=== PATIENT | male | born 1965 | race Caucasian/White ===

== ENCOUNTER 2022-01-06 22:27 | Observation (INO) | payer SELFPAY ==
[~2022-01-06] VITALS: Ht 177.8 cm; Wt 61.0 kg
--- NOTE | 2022-01-06 22:27 | NUR ---
TRIAGED AT BEDSIDE.
[2022-01-06 22:37] VITALS: BP 193/98
[2022-01-06 22:56] LABS: HEMATOCRIT 41.6 % (39.0-50.0); HEMOGLOBIN 13.9 g/dl (14.0-18.0); IMMATURE GRANULOCYTES 0.2 % (0.0-5.0); MEAN CELL VOLUME 98.3 fL CALC (80.0-100.0); MEAN CORPUSCULAR HGB 32.9 pG CALC (26.0-32.0); MEAN CORPUSCULAR HGB CONC 33.4 g/dL CAL (32.0-36.0); NEUT# 5.79 thou/uL (1.82-7.42); RED BLOOD COUNT 4.23 mill/uL (4.70-6.10)
[2022-01-06 23:00] VITALS: BP 173/92
[2022-01-06 23:10] LABS: ALBUMIN 4.9 g/dL (3.2-5.0); ALKALINE PHOSPHATASE 54 u/l (38-126); AMYLASE 112 u/l (30-110); ANION GAP 15 (6-22 (CALC)); BILIRUBIN, TOTAL 0.6 mg/dL (0.0-1.4); BUN 33 mg/dL (9-20); BUN/CREATININE RATIO 15 (12-20 (CALC)); CARBON DIOXIDE 22 mmol/l (22-30); CHLORIDE 108 mmol/l (95-108); CREATININE 2.2 mg/dL (0.7-1.3); GFR FOR AFR.AMER. 38 ML/MIN (>=60 (CALC)); GFR OTHER RACES 31 ML/MIN (>=60 (CALC)); LIPASE 379 u/l (23-300); SGOT/AST 37 u/l (17-59); SODIUM 140 mmol/l (137-146); TOTAL PROTEIN 8.8 g/dL (6.3-8.2)
[2022-01-06 23:12] LABS: POTASSIUM 5.3 mmol/l (3.5-5.1)
[2022-01-06 23:15] VITALS: BP 165/88
[2022-01-06 23:22] LABS: MYOGLOBIN 114 ng/mL (0 - 121)
[2022-01-06 23:30] VITALS: BP 156/81
[2022-01-06 23:45] VITALS: BP 142/77
[2022-01-07] VITALS (15 sets, daily range): BP systolic 137–163; BP diastolic 68–92
--- NOTE | 2022-01-07 02:20 | NUR ---
TO BEDSIDE TO SPEAK WITH PT. PT SLEEPING.
--- NOTE | 2022-01-07 02:37 | NUR ---
REPORT TO FLOOR. NAD.
--- NOTE | 2022-01-07 02:48 | NUR ---
TO FLOOR VIA STRETCHER ON MONITOR/WITH NURSE.
--- NOTE | 2022-01-07 03:00 | NUR ---
PATIENT ADMITTED FROM ED TO ROOM 261, TRANSPORTED VIA STRETCHER. PATIENT ALERT AND ORIENTED X4. ADMISSION HISTORY OBTAINED. ASSESSMENT COMPLETED. PATIENT ORIENTED TO ROOM, INSTRUCTED ON USE OF BED CONTROLS AND CALL SYSTEM. PATIENT VERBALIZES MILD LEFT CHEST DISCOMFORT 4/10, DOES NOT REQUEST PAIN MED AT THIS TIME. CALL LIGHT WITHIN REACH INSTRUCTED TO CALL FOR ASSISTANCE.
--- NOTE | 2022-01-07 07:26 | NUR ---
PT RESTING IN LOW FOWLERS POSITION. A/OX3 ASSESSMENT AND VS COMPLETED. HEART RHYTHM ON TELE. RESPIRATIONS ON ROOM AIR. BWOEL SOUNDS ACTIVE. PT LEDA TO TOELRATE MED WELL. IV SITE NOTED TO LAC. INFUSING WITH NS. PT DENIES ADDITIONAL NEEDS AT THE TIME ALL SAFETY PRECAUTIONS IN PLACE CALL LIGHT INREACH.-
--- NOTE | 2022-01-07 12:00 | NUR ---
PT TO BE NPO AFTER MIDNIGH FOR ULTRASOUND OF ABD.
--- NOTE | 2022-01-07 12:03 | NUR ---
CALLED DR DEY OFFICE SPOKE TO HIMSELF AND TOLD HIM HE HAS A CONSULTATION.
--- NOTE | 2022-01-07 14:21 | NUR ---
The patient is screened for PT intervention and no needs are identified at this time
--- NOTE | 2022-01-07 15:49 | NUR ---
PROVIDER AWARE PF PT HR LOW HIGH 45'S AND LOW 50'S . NO NEW ORDERS
--- NOTE | 2022-01-07 20:00 | NUR ---
RECEIVED REPORT FROM NURSE BIRD. PATIENT RESTING IN BED, C/O ABDOMINAL PAIN, PS 9/10 SHARP PAIN ON ALL 4 QUADRANTS, REQUESTING PAIN MEDICATION, ONGOING IV NS @ 100CC/HR INFUSING WELL ON RFA, REMAINS ON TELEMETRY, ACTIVE BOWLE SOUNDS LBM 01/07, INSTRUCTED ON NPO AFTER MIDNIGHT, CALL LIGHT IN REACH.
--- NOTE | 2022-01-07 23:55 | NUR ---
PATIENT RESTING IN BED WITH EYES CLOSED, BREATHING EVEN UNLABORED,NOT IN DISTRESS, NPO AFTER MIDNIGHT CALL LIGHT IN REACH.
[2022-01-08] VITALS (14 sets, daily range): BP systolic 132–209; BP diastolic 69–98
--- NOTE | 2022-01-08 00:10 | NUR ---
TECH IN ROOM FOR FOR DRAW TROPONIN.
--- NOTE | 2022-01-08 00:15 | NUR ---
RECIEVED A PHONE CALL FROM ED PATIENT HR HIGH 30'S NOT SUSTAINING THEN BACK TO 40'S, HR ASSESSED FULL MINUITE AT 46, PATIENT ASYMPTOMATIC, DENIES PAIN WILL CONTINUE TO MONITOR.
--- NOTE | 2022-01-08 04:46 | NUR ---
PATIENT REMAINS ON NPO, NO DISCOMFORTS NOTED AT THIS TIME, BREATHING UNLABORED, CALL LIGHT IN REACH.
[2022-01-08 05:16] LABS: MEAN CELL VOLUME 99.7 fL CALC (80.0-100.0); MEAN CORPUSCULAR HGB 32.7 pG CALC (26.0-32.0); MEAN CORPUSCULAR HGB CONC 32.8 g/dL CAL (32.0-36.0); NEUT# 3.11 thou/uL (1.82-7.42); RED BLOOD COUNT 3.55 mill/uL (4.70-6.10)
[2022-01-08 05:23] LABS: HEMATOCRIT 35.4 % (39.0-50.0); HEMOGLOBIN 11.6 g/dl (14.0-18.0)
[2022-01-08 05:43] LABS: CREATININE 1.9 mg/dL (0.7-1.3); MAGNESIUM 1.8 mg/dL (1.6-2.3); POTASSIUM 4.7 mmol/l (3.5-5.1)
[2022-01-08 05:46] LABS: ALBUMIN 3.2 g/dL (3.2-5.0)
--- NOTE | 2022-01-08 07:16 | NUR ---
PT RESTING IN LOW FOWLERS POSITION .A/OX3 ASSESSMENT AND VS COMPLETED.HEART RHYTHM ON TELE RESPIRATIONS NONLABORED. PT TO GO TO OR TODAY FOR EGD. IV SITE NOTED TO RFA 22G. NS AT 100. ALL SAFETY PRECAUTIONS IN PLACE WITH CALL LIGHT IN REACH. PT NPO SINCE MIDNIGHT.
--- NOTE | 2022-01-08 08:52 | NUR ---
OR CALLED TO VERIFY WITH ANESTHESIA HOLD NORVASC. HOLD ASPIRIN. ABLE TO GIVE PROTONIX ONLY SIP OF WATER FOR EGD TODAY.
--- NOTE | 2022-01-08 10:54 | NUR ---
PT TO OR.
--- NOTE | 2022-01-08 11:59 | NUR ---
PT IN OR .
--- NOTE | 2022-01-08 12:26 | NUR ---
PT BP HIGH PROVIDER INFORMED.
--- NOTE | 2022-01-08 16:00 | NUR ---
PT BP UNSTABLIZED PT RN TO GIVE IV BP MED. TO BE RECHECKED IN 20 MINUTES. PT HISTORY OF HTN . CAME TO FLOOR WITH UNCONTROLLED BP.
--- NOTE | 2022-01-08 17:04 | NUR ---
ER CALLED FLOOR INFORM OF PT HR DROPS TO 39 PROVIDER INFORMED VIA PHONE. PROVIDER STATED AVOID NARCOTICS . PT STATED FEELING OKAY JUST PAIN FROM EGD.
--- NOTE | 2022-01-08 19:00 | NUR ---
RECEIVED REPORT FROM TENZIN CHOUDHARY.
--- NOTE | 2022-01-08 20:05 | NUR ---
PT ON BED LOW FOWLERS; A&O X3. EVEN AND UNLABORED RESPIRATIONS: CLEAR LUNG SOUNDS UPON AUSCULTATION. TELEMETRY IN PLACE. IV SITE HEALTHY AND PATENT. ACTIVE BOWEL SOUNDS X4 QUADRANTS. NO DISTRESS NOTED. SAFETY PRECAUTIONS IN PLACE WITH CALL LIGHT IN REACH.
[2022-01-09] VITALS (8 sets, daily range): BP systolic 150–171; BP diastolic 60–80
--- NOTE | 2022-01-09 00:41 | NUR ---
RECEIVED CALLED FROM ER: PT'S HR ON THE 40'S. ASSESSSMENT COMPLETED, PT C/O DISCOMFORT ON CHEST. EKG PERFORMED: SHOWED SINUS BRADYCARDIA. TROPONIN NEGATIVE. DR SILVA INFORMED OF SAME. NO NEW ORDERS. SAFETY PRECAUTIONS IN PLACE WITH CALL LIGHT IN REACH.
--- NOTE | 2022-01-09 05:01 | NUR ---
PT RESTING WITH EYES CLOSED. NO DISTRESS NOTED. PT DENIES PAIN AT THIS TIME. TELEMETRY IN PLACE: ELECTRODES REPLACED. IV SITE HEALTHY AND PATENT, INFUSING FLUIDS PER EMAR. SAFETY PRECAUTIONS IN PLACE WITH CALL LIGHT IN REACH.
[2022-01-09 05:33] LABS: HEMATOCRIT 35.9 % (39.0-50.0); MEAN CELL VOLUME 98.6 fL CALC (80.0-100.0); MEAN CORPUSCULAR HGB CONC 33.4 g/dL CAL (32.0-36.0); RED BLOOD COUNT 3.64 mill/uL (4.70-6.10)
[2022-01-09 05:53] LABS: CREATININE 1.7 mg/dL (0.7-1.3); MAGNESIUM 1.7 mg/dL (1.6-2.3); POTASSIUM 4.6 mmol/l (3.5-5.1)
--- NOTE | 2022-01-09 07:02 | NUR ---
REPORT FROM JAMAAL DAVE. ASSUMED PT CARE.
--- NOTE | 2022-01-09 10:15 | NUR ---
DR. CERRATO AT BEDSIDE.
--- NOTE | 2022-01-09 14:33 | NUR ---
PT RESTING IN BED. NO APPARENT DISTRESS NOTED. RESPIRATIONS EVEN AND UNLABORED. O2 SAT 100% ON 2L/M VIA NC, TITRATED DOWN TO 1L/M VIA NC. PT DENIES ANY SOB AT THIS TIME. WILL CONTINUE TO MONITOR.
--- NOTE | 2022-01-09 17:34 | NUR ---
PT RESTING IN BED WITH EYES CLOSED. NO APPARENT DISTRESS NOTED. PT WAKES EASILY. CALL LIGHT WITHIN REACH. WILL CONTINUE TO MONITOR.
--- NOTE | 2022-01-09 19:00 | NUR ---
RECEIVED REPORT FROM ROSIE PALMER.
--- NOTE | 2022-01-09 20:05 | NUR ---
PT RESTING ON BED: A&O X3. EVEN AND UNLABORED RESPIRATIONS: CLEAR LUNG SOUNDS UPON AUSCULTATION. O2 @ 2L VIA NASAL CANNULA IN PLACE. IV SITE HEALTHY AND PATENT. ACTIVE BOWEL SOUNDS X4 QUADRANTS. SAFETY PRECAUTIONS IN PLACE WITH CALL LIGHT IN REACH.
--- NOTE | 2022-01-10 00:05 | NUR ---
PT RESTING WITH EYES CLOSED. NO DISTRESS OR PAIN NOTED. IV SITE INFUSING FLUIDS PER ORDER. SAFETY PRECAUTIONS IN PLACE WITH CALL LIGHT IN REACH.
[2022-01-10 00:14] VITALS: BP 156/77
--- NOTE | 2022-01-10 04:01 | NUR ---
PT RESTING WITH EYES CLOSED. NO DISTRESS OR PAIN NOTED. TELEMETRY IN PLACE. IV SITE HEALTHY AND PATENT, INFUSING FLUIDS PER ORDER. NO NEEDS AT THIS TIME. SAFETY PRECAUTIONS IN PLACE WTIH CALL LIGHT IN REACH.
[2022-01-10 04:40] VITALS: BP 169/83
[2022-01-10 07:09] VITALS: BP 166/71
--- NOTE | 2022-01-10 07:44 | NUR ---
PT RESTING IN LOW FOWLERS POSITION. A/OX3 ASSESSMENT AND VS COMPLETED. HEART RHYTHM ON TELE. RESPIRATIONS UNLABORED. IV SITE NOTED INFUSING NS AT 10. PT DENIES ADDITIONAL NEEDS AT THE TIME ALL SAFETY PRECAUTIONS IN PLACE WITH CALL LIGHT IN REACH.
[2022-01-10] MEDS ORDERED: AMLODIPINE BESYL5 MG PO (09:45)
[2022-01-10] MEDS ORDERED: PANTOPRAZOLE SO40 M1 PO (09:45)
[2022-01-10] MEDS ORDERED: CARAFATE1 GM PO (09:45)
[2022-01-10 10:30] VITALS: BP 162/74
--- NOTE | 2022-01-10 15:46 | NUR ---
Discharge instructions given. Patient verbalizes understanding of same. Discharged in stable condition via Wheelchair to Home with staff. All belongings sent with pt. IV REMOVED TELE REMOVED
== END 2022-01-10 12:37 | disposition home or self-care (01) | DRG 391 ==
LOC: ED 22:27 → ED-I 01-07 01:45 → ED 01-07 02:14 → MS2 01-07 02:15
PROVIDERS: Emergency Medicine; ADMIT Internal Medicine; ATTEND Internal Medicine
PROC: 0DB98ZX Excision of Duodenum, Via Natural or Artificial Opening Endoscopic, Diagnostic (ICD-10-PCS; principal; 2022-01-08)
PROC: 0DB68ZX Excision of Stomach, Via Natural or Artificial Opening Endoscopic, Diagnostic (ICD-10-PCS; 2022-01-08)
DX: K29.50 Unspecified chronic gastritis without bleeding (principal); K85.90 Acute pancreatitis without necrosis or infection, unspecified; N17.9 Acute kidney failure, unspecified; B96.81 Helicobacter pylori [H. pylori] as the cause of diseases classified elsewhere; K29.80 Duodenitis without bleeding; K44.9 Diaphragmatic hernia without obstruction or gangrene; K31.9 Disease of stomach and duodenum, unspecified; I10 Essential (primary) hypertension; I25.10 Atherosclerotic heart disease of native coronary artery without angina pectoris; J44.9 Chronic obstructive pulmonary disease, unspecified; I25.2 Old myocardial infarction; E78.00 Pure hypercholesterolemia, unspecified; F17.210 Nicotine dependence, cigarettes, uncomplicated; Z20.822 Contact with and (suspected) exposure to COVID-19
CPT/HCPCS: G0378; S0164